=== PATIENT | female | born 1965 | race Caucasian/White ===

== ENCOUNTER → 2018-01-22 | Outpatient (CLI) | payer MEDICAID ==
--- NOTE | 2018-01-22 14:26 | Diagnostic Imaging Report ---
INDICATION: Routine screening. Comparison is made with prior mammogram from 09/16/2014 and 06/19/2013. 2-D and 3-D bilateral screening mammography was performed. The current study was also evaluated with a Computer Aided Detection (CAD) system. FINDINGS: Both breasts are heterogeneously dense, limiting the sensitivity of mammography. Mild nodularity in the upper and outer aspect of the left breast is seen at mid depth which appears slightly more prominent on today's study. No other mass or malignant-appearing microcalcifications are seen. There are benign calcifications bilaterally. The axillae are unremarkable. IMPRESSION: Nodularity upper-outer left breast. Additional views and ultrasound are recommended for further evaluation. ACR BI-RADS Category 0: Incomplete. (Needs additional imaging evaluation). Result letter will be mailed to the patient. Note: At least 10% of breast cancer is not imaged by mammography. Dictated by: Dictated on workstation # [id number]
== END ==
LOC: RAD 11:42
PROVIDERS: ATTEND Nurse Practitioner Community Health
DX: Z12.31 Encounter for screening mammogram for malignant neoplasm of breast (principal); N63.21 Unspecified lump in the left breast, upper outer quadrant
CPT/HCPCS: 77067

== ENCOUNTER → 2018-02-05 | Outpatient (CLI) | payer MEDICAID ==
--- NOTE | 2018-02-05 18:12 | Diagnostic Imaging Report ---
INDICATION: Abnormal screening mammogram. 3-D tomosynthesis was also performed and reviewed. COMPARISON is made with prior examination of 09/16/2014 and 01/22/2018. FINDINGS: Spot compression views and 2 lateral views of the left breast were obtained. There is a persistent nodular density in the upper-outer aspect of the left breast. Ultrasound of this area demonstrated a group of complex cysts. No other discrete solid or cystic mass is appreciated. There are benign-type calcifications. IMPRESSION: Category 2 benign. ACR BI-RADS Category 2: Benign findings. Result letter will be mailed to the patient. Note: At least 10% of breast cancer is not imaged by mammography. Dictated by: Dictated on workstation # [id number]
--- NOTE | 2018-02-05 18:14 | Diagnostic Imaging Report ---
INDICATION: Abnormal mammogram TECHNIQUE: Limited real-time grayscale images were obtained of the left breast in various projections. FINDINGS: In the 2 o'clock position of the left breast, 5 cm from the nipple, there is a cluster of cysts measuring 1.3 x 0.6 x 1.1 cm. This appears to correspond with the nodular density seen on mammography. No other discrete solid or cystic masses are appreciated. IMPRESSION: Category 2, benign. Cluster of benign-appearing cysts in the 5 o'clock position of the left breast which appears to correlate with a mammographic abnormality. ACR BI-RADS Category 2: Benign findings. Result letter will be mailed to the patient. Note: At least 10% of breast cancer is not imaged by mammography. Dictated by: Dictated on workstation # [id number]
== END ==
LOC: RAD 13:52
PROVIDERS: ATTEND Nurse Practitioner Community Health
DX: N60.02 Solitary cyst of left breast (principal)
CPT/HCPCS: 76642

== ENCOUNTER → 2019-11-06 | Outpatient (CLI) | payer MEDICAID ==
--- NOTE | 2019-11-06 13:36 | Diagnostic Imaging Report ---
INDICATION: Routine screening. COMPARISON: 01/22/2018 and 09/16/2014. TECHNIQUE: 2D and 3D bilateral screening mammography was performed with CAD. FINDINGS: Scattered fibroglandular densities are identified bilaterally. The previously noted nodular densities in the outer left breast appear stable and were shown to represent cysts. No new mass or malignant appearing microcalcifications are seen. The axillae are unremarkable. IMPRESSION: No mammographic features suspicious for malignancy are identified. ACR BI-RADS Category 2: Benign findings. Result letter will be mailed to the patient. Note: At least 10% of breast cancer is not imaged by mammography. Dictated by: Dictated on workstation # [id number]
== END ==
LOC: RAD 11:23
PROVIDERS: ATTEND Nurse Practitioner Community Health
DX: Z12.31 Encounter for screening mammogram for malignant neoplasm of breast (principal)
CPT/HCPCS: 77063; 77067